=== PATIENT | female | born 1945 | race Caucasian/White ===

== ENCOUNTER → 2022-01-25 | Outpatient (CLI) | payer MEDICARE, OTHER | LOC: MRI 09:45 | DX: M51.16 Intervertebral disc disorders with radiculopathy, lumbar region (principal); M48.061 Spinal stenosis, lumbar region without neurogenic claudication | CPT/HCPCS: 72148 ==

== ENCOUNTER → 2022-02-26 | Outpatient (CLI) | payer MEDICARE, OTHER | LOC: KOH-I 02-25 09:00 | DX: M51.36 Other intervertebral disc degeneration, lumbar region (principal); M48.061 Spinal stenosis, lumbar region without neurogenic claudication; M47.814 Spondylosis without myelopathy or radiculopathy, thoracic region; M48.04 Spinal stenosis, thoracic region | CPT/HCPCS: 72131; 72146 ==

== ENCOUNTER → 2022-04-02 | Outpatient (CLI) | payer MEDICARE, OTHER ==
[~2022-04-02] MED LIST: BACLOFEN10 MG PO; CENTRUM COMPLE1 EACH PO; CYCLOBENZAPRINE10 MG PO; EUTHYROX50 MCG PO; LIPITOR TAB 1010 MG PO; LISINOPRIL-HCT1 EAC2 PO; LOW DOSE ASPIRI81 MG PO; PROTONIX 40 MG40 M1 PO; TYLENOL 8 HOUR650 MG PO
[2022-04-02 08:51] LABS: HEMOGLOBIN 13.6 gm/dl (12.3-15.3); RED BLOOD COUNT 4.37 M/UL (4.00-5.10); WHITE BLOOD COUNT 7.2 K/UL (4.5-11.0)
== END ==
LOC: OPSV2 07:43 → EDSTATUS 08:00 → OPSV2 08:00
PROVIDERS: Orthopaedic Surgery
DX: Z01.818 Encounter for other preprocedural examination (principal); M48.061 Spinal stenosis, lumbar region without neurogenic claudication; M47.26 Other spondylosis with radiculopathy, lumbar region
CPT/HCPCS: 71046; 80048; 81001; 83036; 85027; 87081; 87086

== ENCOUNTER → 2022-04-05 | Outpatient (CLI) | payer MEDICARE, OTHER | LOC: KOH-I 08:00 | DX: M47.24 Other spondylosis with radiculopathy, thoracic region (principal); M48.04 Spinal stenosis, thoracic region | CPT/HCPCS: 72128 ==

== ENCOUNTER 2022-04-15 05:19 | Inpatient (IN) | payer MEDICARE, OTHER ==
[~2022-04-15] VITALS: Ht 162.6 cm; Wt 109.3 kg
[2022-04-15 16:24] LABS: HEMOGLOBIN 11.4 gm/dl (12.3-15.3)
[2022-04-15 19:04] LABS: HEMOGLOBIN 10.4 gm/dl (12.3-15.3); RED BLOOD COUNT 3.3 M/UL (4.00-5.10)
[2022-04-16 04:42] LABS: HEMOGLOBIN 9.8 gm/dl (12.3-15.3); RED BLOOD COUNT 3.09 M/UL (4.00-5.10); WHITE BLOOD COUNT 12.4 K/UL (4.5-11.0)
[2022-04-16] MEDS ORDERED: HYDROCODON-ACE1 EAC4 PO (11:19)
[2022-04-17 05:10] LABS: HEMOGLOBIN 8.9 gm/dl (12.3-15.3); RED BLOOD COUNT 2.81 M/UL (4.00-5.10); WHITE BLOOD COUNT 10.7 K/UL (4.5-11.0)
[2022-04-17 05:37] LABS: BUN/CREATININE RATIO 21 (0-10)
[2022-04-18 04:48] LABS: HEMOGLOBIN 8.6 gm/dl (12.3-15.3); RED BLOOD COUNT 2.7 M/UL (4.00-5.10); WHITE BLOOD COUNT 8.6 K/UL (4.5-11.0)
[2022-04-18 05:02] LABS: BUN/CREATININE RATIO 13 (0-10)
[2022-04-19 04:16] LABS: HEMOGLOBIN 8.2 gm/dl (12.3-15.3); RED BLOOD COUNT 2.58 M/UL (4.00-5.10); WHITE BLOOD COUNT 10.3 K/UL (4.5-11.0)
[2022-04-19 04:43] LABS: BUN/CREATININE RATIO 18 (0-10)
[2022-04-20 04:56] LABS: HEMOGLOBIN 8.3 gm/dl (12.3-15.3); RED BLOOD COUNT 2.6 M/UL (4.00-5.10)
[2022-04-20 05:24] LABS: BUN/CREATININE RATIO 19 (0-10)
[2022-04-21 05:04] LABS: RED BLOOD COUNT 2.53 M/UL (4.00-5.10); WHITE BLOOD COUNT 8.2 K/UL (4.5-11.0)
[2022-04-21 16:57] LABS: BUN/CREATININE RATIO 21 (0-10)
[2022-04-22 04:49] LABS: HEMOGLOBIN 8.1 gm/dl (12.3-15.3); RED BLOOD COUNT 2.57 M/UL (4.00-5.10); WHITE BLOOD COUNT 9.6 K/UL (4.5-11.0)
[2022-04-22 05:17] LABS: BUN/CREATININE RATIO 20 (0-10)
[2022-04-22] MEDS ORDERED: ROXICODONE5 MG PO (07:40)
[2022-04-22] MEDS ORDERED: CORTIZONE-10 PL28 GM TP (09:52)
[2022-04-22] MEDS ORDERED: BANOPHEN25 MG PO (09:52)
== END 2022-04-22 17:30 | disposition short-term general hospital (02) | DRG 457 ==
LOC: OR 05:19 → CCU 19:51
PROVIDERS: Internal Medicine; ADMIT Orthopaedic Surgery
PROC: 0RBB0ZZ Excision of Thoracolumbar Vertebral Disc, Open Approach (ICD-10-PCS; 2022-04-15)
PROC: 0SB20ZZ Excision of Lumbar Vertebral Disc, Open Approach (ICD-10-PCS; 2022-04-15)
PROC: 0SB40ZZ Excision of Lumbosacral Disc, Open Approach (ICD-10-PCS; 2022-04-15)
PROC: 0RB90ZZ Excision of Thoracic Vertebral Disc, Open Approach (ICD-10-PCS; 2022-04-15)
PROC: 00NX0ZZ Release Thoracic Spinal Cord, Open Approach (ICD-10-PCS; 2022-04-15)
PROC: 00NY0ZZ Release Lumbar Spinal Cord, Open Approach (ICD-10-PCS; 2022-04-15)
PROC: 4A11X4G Monitoring of Peripheral Nervous Electrical Activity, Intraoperative, External Approach (ICD-10-PCS; 2022-04-15)
PROC: 0SG3071 Fusion of Lumbosacral Joint with Autologous Tissue Substitute, Posterior Approach, Posterior Column, Open Approach (ICD-10-PCS; principal; 2022-04-15 07:30)
PROC: 0RGA071 Fusion of Thoracolumbar Vertebral Joint with Autologous Tissue Substitute, Posterior Approach, Posterior Column, Open Approach (ICD-10-PCS; principal; 2022-04-15 07:30)
PROC: 0SG1071 Fusion of 2 or more Lumbar Vertebral Joints with Autologous Tissue Substitute, Posterior Approach, Posterior Column, Open Approach (ICD-10-PCS; principal; 2022-04-15 07:30)
PROC: 0RG7071 Fusion of 2 to 7 Thoracic Vertebral Joints with Autologous Tissue Substitute, Posterior Approach, Posterior Column, Open Approach (ICD-10-PCS; principal; 2022-04-15 07:30)
PROC: 0PU43JZ Supplement Thoracic Vertebra with Synthetic Substitute, Percutaneous Approach (ICD-10-PCS; 2022-04-15 07:30)
DX: M48.061 Spinal stenosis, lumbar region without neurogenic claudication (principal); D62 Acute posthemorrhagic anemia; N17.9 Acute kidney failure, unspecified; Z68.41 Body mass index [BMI] 40.0-44.9, adult; Z20.822 Contact with and (suspected) exposure to COVID-19; I10 Essential (primary) hypertension; E03.9 Hypothyroidism, unspecified; L25.9 Unspecified contact dermatitis, unspecified cause; T36.1X5A Adverse effect of cephalosporins and other beta-lactam antibiotics, initial encounter; M41.86 Other forms of scoliosis, lumbar region; E66.9 Obesity, unspecified; M54.16 Radiculopathy, lumbar region; K21.9 Gastro-esophageal reflux disease without esophagitis; D72.829 Elevated white blood cell count, unspecified; Z79.82 Long term (current) use of aspirin; Z98.890 Other specified postprocedural states; Z90.710 Acquired absence of both cervix and uterus; Z90.49 Acquired absence of other specified parts of digestive tract; Z83.3 Family history of diabetes mellitus
CPT/HCPCS: 36415; 72100; 72110; 76000; 80048; 80202; 82803; 83735; 84439; 84443; 84550; 85014; 85018; 85025; 85027; 85610; 85730; 86140; 86850; 86900; 86901; 86920; 86927; 97110-GP-CQ; 97116-GP-CQ; 97162; 97166; 97530; 97530-GP-CQ; 97535; C1713; C1762; C1781; J0690; J1040; J1100; J1170; J1644; J2001; J2370; J2405; J2704; J2920; J3010; J3370; J3475; J7040; J7070; P9016; P9017; P9035; P9045; U0002

== ENCOUNTER 2022-05-03 18:42 | Emergency (ER) | payer MEDICARE, OTHER ==
[~2022-05-03 18:42] MED LIST changes: +BANOPHEN25 MG PO; +CORTIZONE-10 PL28 GM TP; +HYDROCODON-ACE1 EAC4 PO; +ROXICODONE5 MG PO
[2022-05-03 19:18] LABS: HEMOGLOBIN 8.8 gm/dl (12.3-15.3); RED BLOOD COUNT 2.86 M/UL (4.00-5.10); WHITE BLOOD COUNT 10.7 K/UL (4.5-11.0)
[2022-05-04] MEDS ORDERED: ATIVAN0.5 MG PO (13:09)
== END 2022-05-03 22:04 | disposition left against medical advice (07) ==
LOC: ER1 18:42
PROVIDERS: Emergency Medicine
DX: R29.90 Unspecified symptoms and signs involving the nervous system (principal); R31.9 Hematuria, unspecified
CPT/HCPCS: 71045; 80053; 83605; 85025; 93005; 99281

== ENCOUNTER 2022-05-04 02:48 | Emergency (ER) | payer MEDICARE, OTHER ==
[2022-05-04 04:44] LABS: RED BLOOD COUNT 2.97 M/UL (4.00-5.10); WHITE BLOOD COUNT 9.9 K/UL (4.5-11.0)
[2022-05-04] MEDS ORDERED: ATIVAN0.5 MG PO (13:09)
== END 2022-05-04 13:34 | disposition home or self-care (01) ==
LOC: ER1 02:48
PROVIDERS: Student in an Organized Health Care Education/Training Program
DX: M48.061 Spinal stenosis, lumbar region without neurogenic claudication (principal); G89.18 Other acute postprocedural pain; F41.9 Anxiety disorder, unspecified; G25.3 Myoclonus; I10 Essential (primary) hypertension
CPT/HCPCS: 72131; 72192; 80053; 81001; 85025; 96374; 96375; 96376; 99284; J1100; J1170; J1885; J2060